=== PATIENT | male | born 1945 | race Hispanic/Latino ===

== ENCOUNTER → 2018-09-23 | Outpatient (CLI) | payer OTHER | END | disposition home or self-care (01) | LOC: RAH 10:55 | PROVIDERS: ATTEND Internal Medicine | DX: Z13.6 Encounter for screening for cardiovascular disorders (principal) | CPT/HCPCS: 75571 ==

== ENCOUNTER → 2018-10-19 | Outpatient (CLI) | payer OTHER ==
[~2018-10-19] VITALS: Ht 167.6 cm; Wt 85.7 kg
[2018-10-19] MEDS: REGADENOSON 0.4 MG/5 ML PF SYG IVP SCH ×2 (14:19→14:42)
== END | disposition home or self-care (01) ==
LOC: RAH 08:40
PROVIDERS: ATTEND Internal Medicine
DX: I21.19 ST elevation (STEMI) myocardial infarction involving other coronary artery of inferior wall (principal); I10 Essential (primary) hypertension
CPT/HCPCS: 78452; 93017; 96374; A9500 ×2; J2785

== ENCOUNTER 2018-11-04 07:21 | Observation (INO) | payer OTHER ==
[2018-11-03 09:15] VITALS: BP 128/66
[2018-11-03 09:46] LABS: EOSINOPHILS % (AUTO) 4.8 % (0.0-8.0); HEMATOCRIT 43.7 % (42-54); LYMPHOCYTES % (AUTO) 26.1 % (21.0-51.0); MEAN CORPUSCULAR VOLUME 90.6 fL (79-99); NEUTROPHILS % (AUTO) 60.1 % (40.0-77.0); NUCLEATED RED BLOOD CELLS 1.4 % (0.0-0.19); PLATELET COUNT (AUTO) 189 K/uL (130-400); RED BLOOD CELL COUNT(AUTO) 4.82 MIL/uL (4.50-6.20); WHITE BLOOD COUNT (AUTO) 6.6 K/uL (4.8-10.8)
[2018-11-03 09:47] LABS: APPEARANCE,URINE Clear (CLEAR); BILIRUBIN,URINE Negative (NEGATIVE); COLOR,URINE Yellow (YELLOW); GLUCOSE, URINE (UA) Negative (NEGATIVE); KETONES,URINE Negative (NEGATIVE); LEUKOCYTE ESTERASE ,URINE Negative (NEGATIVE); NITRATE,URINE Negative (NEGATIVE); OCCULT BLOOD,URINE Negative (NEGATIVE); PROTEIN,URINE Negative (NEGATIVE); UROBILINOGEN,URINE 0.2 mg/dL (0.2-1.0)
[2018-11-03 09:54] LABS: CREATININE 1.2 mg/dL (0.5-1.5); POTASSIUM 3.8 mmol/L (3.5-5.1)
[2018-11-03 10:00] LABS: INR 0.95 (0.85-1.15); PARTIAL THROMBOPLASTIN TIME 27.4 SEC (26.3-35.5)
[2018-11-04] VITALS (10 sets, daily range): BP systolic 139–167; BP diastolic 69–102
[~2018-11-04] VITALS: Ht 165.1 cm; Wt 79.4 kg
[~2018-11-04 07:21] MED LIST: ASPI-1181 PO; ATOR40TA71 PO; GLIM4TAB3 PO; ISOS30TA6 PO; LOSA1TAB54 PO; METF-444 PO; NITR0.4T50 SL; SITA50TA PO
[2018-11-04] MEDS ORDERED: SODIUM CHLORIDE 0.9% 1000ML 1,000 ML IV ONE ×2 (08:46→14:17)
[2018-11-04] MEDS ORDERED: BIVALIRUDIN 250 MG/VIAL IV ONE (11:29)
[2018-11-04] MEDS ORDERED: NITROGLYCERIN 5 MG/ML 10 ML VIAL IV ONE (11:29)
[2018-11-04] MEDS ORDERED: LIDOCAINE HCL 2% 20ML ONE (11:30)
[2018-11-04] MEDS ORDERED: IOHEXOL-350 50ML VIAL IV ONE (11:30)
[2018-11-04] MEDS ORDERED: IOHEXOL 350 MG/ML 100ML INFUS..BTL IV ONE (11:30)
[2018-11-04] MEDS ORDERED: HEPARIN SODIUM 1000UNIT/ML 10ML VIAL ONE (12:11)
[2018-11-04] MEDS ORDERED: TICAGRELOR 90 MG TABLET ONE (12:13)
[2018-11-04] MEDS ORDERED: ATROPINE SULFATE 0.1 MG/ML 10 ML SYG IVP ONE (12:22)
[2018-11-04] MEDS ORDERED: IOHEXOL-350 75 ML VIAL IV ONE (12:38)
[2018-11-04] MEDS ORDERED: NITROGLYCERIN 0.4 MG SL TAB SL PRN (13:15)
[2018-11-04] MEDS: SODIUM CHLORIDE 0.9% 1000ML 1,000 ML IV SCH (14:15)
[2018-11-04] MEDS: GLIMEPIRIDE 2 MG TABLET PO SCH (17:10)
--- NOTE | 2018-11-04 19:50 | NUR ---
PT IS S/P LHC DUE TO ABNORMAL STRESS TEST. PT BEDREST IS OVER. HE HAD BEEN AMBULATING AND WHEN RIGHT GROIN WAS ASSESSED IT WAS NOTED TO HAVE SOME MINOR BLEEDING. PT PLACED BACK ON BEDREST X1HR. SUGGEST TO MINIMIZE ACTIVITY TO PREVENT FURTHER RISK OF BLEEDING. PT AWARE. NS AT 100ML/HR X1 CONTINUES.
[2018-11-04] MEDS ORDERED: ATORVASTATIN CALCIUM 40 MG TABLET PO SCH (21:00)
[2018-11-04] MEDS: TICAGRELOR 90 MG TABLET PO SCH (21:17)
[2018-11-05] MEDS: SODIUM CHLORIDE 0.9% 1000ML 1,000 ML IV SCH ×2 (00:15→09:53)
[2018-11-05 03:23] VITALS: BP 108/65
[2018-11-05 03:44] LABS: HEMATOCRIT 41.1 % (42-54); MEAN CORPUSCULAR HEMOGLOBIN 30.6 pg (27.0-33.0); MEAN CORPUSCULAR HGB CONC 34.7 g/dL (32.0-36.0); MEAN CORPUSCULAR VOLUME 88.3 fL (79-99); NUCLEATED RED BLOOD CELLS 0.1 % (0.0-0.19); PLATELET COUNT (AUTO) 194 K/uL (130-400); RED BLOOD CELL COUNT(AUTO) 4.66 MIL/uL (4.50-6.20); RED CELL DISTRIBUTION WIDTH 13.6 % (11.0-15.5); WHITE BLOOD COUNT (AUTO) 10.6 K/uL (4.8-10.8)
[2018-11-05 03:54] LABS: POTASSIUM 4.1 mmol/L (3.5-5.1)
[2018-11-05 07:00] VITALS: BP 149/92
[2018-11-05] MEDS ORDERED: LINAGLIPTIN 5 MG TABLET PO SCH (07:30)
[2018-11-05] MEDS: TICAGRELOR 90 MG TABLET PO SCH (08:27)
[2018-11-05] MEDS: GLIMEPIRIDE 2 MG TABLET PO SCH (08:27)
[2018-11-05] MEDS ORDERED: ISOSORBIDE MONO 30MG TAB SR PO SCH (09:00)
[2018-11-05] MEDS ORDERED: LOSARTAN/HYDROCHLOROTHIAZIDE 50-12.5MG TABLET PO SCH (09:00)
[2018-11-05] MEDS ORDERED: NON-FORMULARY MEDICATION 1 EACH (Aspirin (Aspirin EC) 81 MG) PO SCH (09:00)
[2018-11-05] MEDS ORDERED: ASPIRIN 81MG TAB.CHEW PO SCH (09:00)
[2018-11-05 11:00] VITALS: BP 121/68
[2018-11-05] MEDS ORDERED: TICA90TA PO (12:39)
--- NOTE | 2018-11-05 13:01 | NUR ---
DISCHARGE INSTRUCTIONS/INFORMATION GIVEN TO PATIENT AND DAUGHTER AT BEDSIDE. PRESCRIPTION FOR [place] WAS INCLUDED IN D/C PACKET. TEACH BACK METHOD USED TO EDUCATE PATIENT ON NEW MEDICATION PRESCRIBED, ACTIVITY RESTRICTIONS, S/S TO MONITOR, WHEN TO CALL MD, AND F/U APPOINTMENT. PIV REMOVED. TIP INTACT. TELE PACK REMOVED AND RETURNED. RIGHT GROIN DRESSING WAS CHANGED. ALL BELONGINGS WERE PACKED. PATIENT WAS SAFELY WHEELED TO PRIVATE CAR.
== END 2018-11-05 13:10 | disposition home or self-care (01) ==
LOC: DAH 07:21 → DAHIP 07:22 → DAH 07:22 → 2DH 14:28
PROVIDERS: ADMIT Internal Medicine Cardiovascular Disease; ATTEND Internal Medicine Cardiovascular Disease
DX: I20.9 Angina pectoris, unspecified (principal); E11.9 Type 2 diabetes mellitus without complications; E78.5 Hyperlipidemia, unspecified; I25.84 Coronary atherosclerosis due to calcified coronary lesion; R00.1 Bradycardia, unspecified; I10 Essential (primary) hypertension; Z95.5 Presence of coronary angioplasty implant and graft; Z79.899 Other long term (current) drug therapy; Z79.01 Long term (current) use of anticoagulants
CPT/HCPCS: 36415 ×2; 71045; 80048 ×2; 80061; 81003; 82948 ×4; 85025; 85027; 85610; 85730; 93005 ×3; 93458; A4606; C1725 ×2; C1760; C1769; C1874 ×2; C1887; C1894 ×3; C9600; G0378 ×24; J1644 ×2; J3490 ×2; J7030 ×2; Q9965 ×2; Q9967 ×2; 92920; J0461; J0583

== ENCOUNTER 2019-11-01 09:19 | Day surgery (SDC) | payer OTHER ==
[2019-11-01] VITALS (8 sets, daily range): BP systolic 95–139; BP diastolic 53–83
[~2019-11-01] VITALS: Ht 167.6 cm; Wt 78.5 kg
[~2019-11-01 09:19] MED LIST changes: -ASPI-1181 PO; +ASPI-1443 PO; +EMPA25TA PO; +ESOM20SU2 PO; +FOLI20CA PO; -GLIM4TAB3 PO; -ISOS30TA6 PO; -LOSA1TAB54 PO; +LOSA25TA41 PO; +PRAS10TA9 PO; +SODIUM CHLORIDE 0.9% 1000ML 1,000 ML IV ONE
[2019-11-01] MEDS ORDERED: PROPOFOL 10 MG/ML 20ML VIAL IV ONE ×2 (11:49)
[2019-11-01] MEDS ORDERED: GLYCOPYRROLATE 0.2 MG/ML 5 ML VIAL ONE (12:04)
== END 2019-11-01 13:00 | disposition home or self-care (01) ==
LOC: DAH 09:19 → ENDO 09:19
PROVIDERS: ATTEND Internal Medicine
DX: R63.4 Abnormal weight loss (principal); K22.8 Other specified diseases of esophagus; K31.89 Other diseases of stomach and duodenum; K57.30 Diverticulosis of large intestine without perforation or abscess without bleeding; I25.10 Atherosclerotic heart disease of native coronary artery without angina pectoris; E11.9 Type 2 diabetes mellitus without complications; E78.2 Mixed hyperlipidemia; I10 Essential (primary) hypertension; Z79.899 Other long term (current) drug therapy
CPT/HCPCS: 36415; 43239; 45378; 82948 ×2; 87635; 88305; 88342; A4215; A4221; A4222; A4223; A4606; A4620; A4663; J2704 ×2; J3490; J7030; 43200

== ENCOUNTER → 2020-01-03 | Outpatient (CLI) | payer OTHER ==
[~2020-01-03] MED LIST changes: -SODIUM CHLORIDE 0.9% 1000ML 1,000 ML IV ONE
== END | disposition home or self-care (01) ==
LOC: RAH 08:35
PROVIDERS: ATTEND Internal Medicine Gastroenterology
DX: K76.0 Fatty (change of) liver, not elsewhere classified (principal); R16.0 Hepatomegaly, not elsewhere classified; N26.1 Atrophy of kidney (terminal); I70.0 Atherosclerosis of aorta; N28.1 Cyst of kidney, acquired; R63.4 Abnormal weight loss
CPT/HCPCS: 76700

== ENCOUNTER 2021-07-26 06:11 | Day surgery (SDC) | payer OTHER ==
[2021-07-24 14:00] VITALS: BP 139/72
[2021-07-24 14:15] LABS: BASOPHILS % (AUTO) 0.9 % (0.0-5.0); EOSINOPHILS % (AUTO) 2.7 % (0.0-8.0); HEMATOCRIT 41.9 % (42-54); LYMPHOCYTES % (AUTO) 31.8 % (21.0-51.0); MEAN CORPUSCULAR HEMOGLOBIN 29.2 pg (27.0-33.0); MEAN CORPUSCULAR HGB CONC 34.1 g/dL (32.0-36.0); MEAN CORPUSCULAR VOLUME 85.5 fL (79-99); MONOCYTES % (AUTO) 7.4 % (3.0-13.0); NEUTROPHILS % (AUTO) 56.8 % (40.0-77.0); PLATELET COUNT (AUTO) 251 K/uL (130-400); RED CELL DISTRIBUTION WIDTH 12.9 % (11.0-15.5); WHITE BLOOD COUNT (AUTO) 7.8 K/uL (4.8-10.8)
[2021-07-24 14:30] LABS: CREATININE 1.3 mg/dL (0.5-1.5)
[2021-07-26] VITALS (18 sets, daily range): BP systolic 123–172; BP diastolic 63–102
[~2021-07-26] VITALS: Ht 167.6 cm; Wt 69.5 kg
[~2021-07-26 06:11] MED LIST changes: +CEFAZOLIN SODIUM 1 GM VIAL IVP SCH; -ESOM20SU2 PO; -FOLI20CA PO; -NITR0.4T50 SL; -PRAS10TA9 PO
[2021-07-26] MEDS ORDERED: 0.9%NACL 1000ML 1,000 ML IV ONE (06:49)
[2021-07-26] MEDS ORDERED: PROPOFOL 10 MG/ML 20ML VIAL IV ONE (09:01)
[2021-07-26] MEDS ORDERED: FENTANYL CITRATE PF 50 MCG/1 ML 5ML AMP IV ONE (09:01)
[2021-07-26] MEDS ORDERED: MIDAZOLAM HCL 1 MG/ML 2ML VIAL ONE (09:01)
[2021-07-26] MEDS ORDERED: LIDOCAINE HCL-MPF 1% 5ML AMP IJ ONE (09:01)
[2021-07-26] MEDS ORDERED: BUPIVACAINE/PF 0.25% 30ML VIAL IJ ONE (09:04)
[2021-07-26] MEDS ORDERED: NEOMY SULF/BACITRAC ZN/POLY OINT 30GM TUBE TP ONE (09:04)
[2021-07-26] MEDS ORDERED: EPHEDRINE SULFATE 50 MG/ML AMPULE ONE (09:45)
== END 2021-07-26 12:08 | disposition home or self-care (01) ==
LOC: DAH 06:11
PROVIDERS: ATTEND Urology
DX: N47.1 Phimosis (principal); Z20.822 Contact with and (suspected) exposure to COVID-19; E11.51 Type 2 diabetes mellitus with diabetic peripheral angiopathy without gangrene; K21.9 Gastro-esophageal reflux disease without esophagitis; E11.39 Type 2 diabetes mellitus with other diabetic ophthalmic complication; H42 Glaucoma in diseases classified elsewhere; Z79.84 Long term (current) use of oral hypoglycemic drugs; Z79.82 Long term (current) use of aspirin; Z98.890 Other specified postprocedural states; Z79.899 Other long term (current) drug therapy; Z79.01 Long term (current) use of anticoagulants; Z95.5 Presence of coronary angioplasty implant and graft
CPT/HCPCS: 36415; 54161; 80048; 82948 ×2; 85025; 87635; 93005; A4215; A4221; A4222; A4223; A4510; A4600; A4663; A6260; C9803; J0690; J2250; J2704; J3010; J3490 ×3; J7030 ×2

== ENCOUNTER → 2022-12-25 | Outpatient (CLI) | payer OTHER ==
[~2022-12-25] MED LIST changes: -CEFAZOLIN SODIUM 1 GM VIAL IVP SCH
[2022-12-25 12:28] LABS: CREATININE 1.2 mg/dL (0.5-1.5); POTASSIUM 3.6 mmol/L (3.5-5.1); TOTAL PROTEIN, SERUM 7.6 g/dL (6.0-8.3)
== END | disposition home or self-care (01) ==
LOC: LAB 08:41
PROVIDERS: ATTEND Internal Medicine Cardiovascular Disease
DX: I25.10 Atherosclerotic heart disease of native coronary artery without angina pectoris (principal); I10 Essential (primary) hypertension; E78.2 Mixed hyperlipidemia; E11.59 Type 2 diabetes mellitus with other circulatory complications
CPT/HCPCS: 36415; 80053; 80061

== ENCOUNTER → 2023-07-15 | Outpatient (CLI) | payer OTHER ==
[2023-07-15 12:35] LABS: ALBUMIN 4.1 g/dL (3.5-5.0); BILIRUBIN,TOTAL 0.4 mg/dL (0.2-1.0); CREATININE 1.3 mg/dL (0.5-1.5); POTASSIUM 4.6 mmol/L (3.5-5.1); TOTAL PROTEIN, SERUM 8.1 g/dL (6.0-8.3)
== END | disposition home or self-care (01) ==
LOC: LAB 08:38
PROVIDERS: ATTEND Internal Medicine Cardiovascular Disease
DX: I10 Essential (primary) hypertension (principal); E78.5 Hyperlipidemia, unspecified
CPT/HCPCS: 36415; 80053; 80061

== ENCOUNTER → 2024-03-02 | Outpatient (CLI) | payer OTHER ==
[2024-03-02 12:27] LABS: ALBUMIN 4.1 g/dL (3.5-5.0); BILIRUBIN,TOTAL 0.6 mg/dL (0.2-1.0); CREATININE 1.2 mg/dL (0.5-1.3); TOTAL PROTEIN, SERUM 7.7 g/dL (6.0-8.3)
== END | disposition home or self-care (01) ==
LOC: LAB 09:36
PROVIDERS: ATTEND Internal Medicine Cardiovascular Disease
DX: I10 Essential (primary) hypertension (principal); I25.10 Atherosclerotic heart disease of native coronary artery without angina pectoris; E78.5 Hyperlipidemia, unspecified
CPT/HCPCS: 36415; 80053; 80061